=== PATIENT | male | born 1940 ===

== ENCOUNTER → 2023-01-08 | Outpatient (CLI) | payer MEDICARE ==
[~2023-01-08] MED LIST: ATORVASTATIN CA20 MG; DONEPEZIL HCL5 M2 PO; FUROSEMIDE20 MG PO; JARDIANCE10 MG PO; METFORMIN HYDROCHLOR; METOPROLOL SUCC25 MG PO; TAMSULOSIN HCL0.4 M1 PO
== END ==
LOC: LAB 17:17 → LAB SHORT 17:17
DX: B35.3 Tinea pedis (principal); L30.9 Dermatitis, unspecified
CPT/HCPCS: 87210; 87220

== ENCOUNTER → 2023-01-08 | Outpatient (CLI) | payer MEDICARE | LOC: LAB SHORT 07:24 → PLD 07:24 | DX: B35.1 Tinea unguium (principal) | CPT/HCPCS: 88304; 88312 ==

== ENCOUNTER 2024-02-08 11:25 | Emergency (ER) | payer OTHER, MEDICARE ==
[~2024-02-08] VITALS: Ht 180.3 cm; Wt 86.2 kg
[2024-02-08 11:39] VITALS: BP 103/60
== END 2024-02-08 12:39 | disposition home or self-care (01) ==
LOC: ER 11:25
DX: S51.812A Laceration without foreign body of left forearm, initial encounter (principal); R07.81 Pleurodynia; W01.0XXA Fall on same level from slipping, tripping and stumbling without subsequent striking against object, initial encounter; E11.9 Type 2 diabetes mellitus without complications; G30.9 Alzheimer's disease, unspecified; F02.80 Dementia in other diseases classified elsewhere, unspecified severity, without behavioral disturbance, psychotic disturbance, mood disturbance, and anxiety; F17.200 Nicotine dependence, unspecified, uncomplicated; Z79.899 Other long term (current) drug therapy
CPT/HCPCS: 71101; 99283-25

== ENCOUNTER 2024-04-19 09:39 | Emergency (ER) | payer MEDICARE ==
[~2024-04-19] VITALS: Ht 177.8 cm; Wt 86.2 kg
[2024-04-19 10:14] VITALS: BP 127/64
[2024-04-19 11:21] LABS: Albumin, Blood 3.3 g/dL (3.4-5.0); Albumin/Globulin Ratio 0.8 (0.8-1.8); Bilirubin, Total 1.3 mg/dL (0.1-1.0); Bun/Creatinine Ratio 22.8 (12.0-20.0); Calcium, Blood 9.2 mg/dL (8.5-10.1); Creatinine, Blood 0.97 mg/dL (0.60-1.20); Globulin, Blood 3.9 g/dL (2.2-4.0); Potassium, Blood 4.4 mmol/L (3.5-5.5); Total Protein, Blood 7.2 g/dL (6.4-8.2)
[2024-04-19 11:30] LABS: BASOPHILS ABSOLUTE AUTO 0.02 K/mm3 (0.00-0.23); BASOPHILS PERCENT AUTO 0 % (0-2); EOSINOPHILS PERCENT AUTO 1 % (0-6); Hematocrit 40.7 % (37.0-53.0); Hemoglobin 13.8 g/dL (13.5-17.5); IMMATURE GRAN ABSOLUTE AUTO 0.04 K/mm3 (0.00-0.10); IMMATURE GRAN PERCENT AUTO 1 % (0-1); LYMPHOCYTES ABSOLUTE AUTO 1.16 K/mm3 (0.84-5.20); LYMPHOCYTES PERCENT AUTO 15 % (21-46); MONOCYTES ABSOLUTE AUTO 0.66 K/mm3 (0.16-1.47); MONOCYTES PERCENT AUTO 9 % (4-13); Mean Corpuscular HGB 33.2 pg (26.0-34.0); Mean Corpuscular HGB Conc 33.9 g/dL (31.5-36.5); Mean Corpuscular Volume 98 fL (80-100); Mean Platelet Volume 10.8 fL (9.1-12.4); NEUTROPHILS ABSOLUTE AUTO 5.62 K/mm3 (1.96-9.15); NEUTROPHILS PERCENT AUTO 74 % (41-73); Platelet Count 162 K/mm3 (150-400); RDW Coefficient Variation 13.6 % (11.7-14.2); RDW Standard Deviation 49.2 fL (35.1-46.3); Red Blood Cell Count 4.16 M/mm3 (4.30-5.90)
[2024-04-19] MEDS ORDERED: CEPH500 PO (19:00)
== END 2024-04-19 12:17 | disposition left against medical advice (07) ==
LOC: ER 09:39
PROVIDERS: Physician Assistant
DX: L98.419 Non-pressure chronic ulcer of buttock with unspecified severity (principal); Z53.21 Procedure and treatment not carried out due to patient leaving prior to being seen by health care provider; L89.309 Pressure ulcer of unspecified buttock, unspecified stage; L89.322 Pressure ulcer of left buttock, stage 2; L89.312 Pressure ulcer of right buttock, stage 2; E11.9 Type 2 diabetes mellitus without complications; G30.9 Alzheimer's disease, unspecified; F02.80 Dementia in other diseases classified elsewhere, unspecified severity, without behavioral disturbance, psychotic disturbance, mood disturbance, and anxiety; Z86.73 Personal history of transient ischemic attack (TIA), and cerebral infarction without residual deficits; Z79.84 Long term (current) use of oral hypoglycemic drugs; Z79.899 Other long term (current) drug therapy
CPT/HCPCS: 72193; 80053; 85025; 99281; 99283-25; Q9967

== ENCOUNTER 2024-04-19 13:17 | Emergency (ER) | payer MEDICARE ==
[~2024-04-19] VITALS: Ht 177.8 cm; Wt 86.2 kg
[2024-04-19 16:24] VITALS: BP 168/93
[2024-04-19] MEDS ORDERED: Cephalexin Monohydrate 500 MG Cap PO ONE (19:00)
[2024-04-19] MEDS ORDERED: CEPH500 PO (19:00)
== END 2024-04-19 18:58 | disposition home or self-care (01) ==
LOC: ER 13:17
DX: L89.322 Pressure ulcer of left buttock, stage 2 (principal); L89.312 Pressure ulcer of right buttock, stage 2; E11.9 Type 2 diabetes mellitus without complications; G30.9 Alzheimer's disease, unspecified; F02.80 Dementia in other diseases classified elsewhere, unspecified severity, without behavioral disturbance, psychotic disturbance, mood disturbance, and anxiety; Z86.73 Personal history of transient ischemic attack (TIA), and cerebral infarction without residual deficits; Z79.84 Long term (current) use of oral hypoglycemic drugs; Z79.899 Other long term (current) drug therapy
CPT/HCPCS: 72193; 99283-25; Q9967

== ENCOUNTER 2024-04-24 01:50 | Emergency (ER) | payer MEDICARE ==
[~2024-04-24] VITALS: Ht 180.3 cm; Wt 81.7 kg
[~2024-04-24 01:50] MED LIST changes: -ATORVASTATIN CA20 MG; +ATORVASTATIN CA20 MG PO; +CEPH500 PO
[2024-04-24 02:07] VITALS: BP 154/91
[2024-04-24 02:44] LABS: Source, Urine Straight Cath
[2024-04-24 02:48] LABS: Bilirubin, Urine Neg (Neg); Blood, Urine 3+ (Neg); Glucose Qualitative, Urine 4+ (Neg); Ketones, Urine 1+ (Neg); Leukocyte Esterase, Urine Neg (Neg); Nitrite, Urine Neg (Neg); Protein, Urine 3+ (Neg); Urobilinogen, Urine 3+ (Normal)
[2024-04-24 02:50] LABS: BASOPHILS ABSOLUTE AUTO 0.01 K/mm3 (0.00-0.23); BASOPHILS PERCENT AUTO 0 % (0-2); EOSINOPHILS PERCENT AUTO 0 % (0-6); Hematocrit 38.6 % (37.0-53.0); Hemoglobin 12.9 g/dL (13.5-17.5); IMMATURE GRAN ABSOLUTE AUTO 0.02 K/mm3 (0.00-0.10); IMMATURE GRAN PERCENT AUTO 0 % (0-1); LYMPHOCYTES ABSOLUTE AUTO 0.31 K/mm3 (0.84-5.20); LYMPHOCYTES PERCENT AUTO 7 % (21-46); MONOCYTES ABSOLUTE AUTO 0.44 K/mm3 (0.16-1.47); MONOCYTES PERCENT AUTO 9 % (4-13); Mean Corpuscular HGB 32.9 pg (26.0-34.0); Mean Corpuscular HGB Conc 33.4 g/dL (31.5-36.5); Mean Corpuscular Volume 99 fL (80-100); Mean Platelet Volume 9.4 fL (9.1-12.4); NEUTROPHILS ABSOLUTE AUTO 3.92 K/mm3 (1.96-9.15); NEUTROPHILS PERCENT AUTO 83 % (41-73); Platelet Count 120 K/mm3 (150-400); RDW Coefficient Variation 13.5 % (11.7-14.2); RDW Standard Deviation 49.4 fL (35.1-46.3); Red Blood Cell Count 3.92 M/mm3 (4.30-5.90)
[2024-04-24 02:56] LABS: Appearance, Urine Clear (Clear); Color, Urine Yellow (P-Yellow)
[2024-04-24 02:57] LABS: Bacteria Not Seen /hpf; Red Blood Cells, Urine 0-2 /hpf (0-2); Squamous Epithelial Cells Not Seen /hpf (Few); White Blood Cells, Urine Not Seen /hpf (0-5)
[2024-04-24 03:21] LABS: Albumin, Blood 2.7 g/dL (3.4-5.0); Albumin/Globulin Ratio 0.7 (0.8-1.8); Bilirubin, Total 1.7 mg/dL (0.1-1.0); Bun/Creatinine Ratio 26.9 (12.0-20.0); Calcium, Blood 8.6 mg/dL (8.5-10.1); Creatinine, Blood 0.97 mg/dL (0.60-1.20); Globulin, Blood 3.9 g/dL (2.2-4.0); Potassium, Blood 3.7 mmol/L (3.5-5.5); Total Protein, Blood 6.6 g/dL (6.4-8.2)
[2024-04-24 03:47] LABS: Influenza A, PCR NEGATIVE (NEGATIVE); Influenza B, PCR NEGATIVE (NEGATIVE); Resp Syncytial Virus, PCR NEGATIVE (NEGATIVE)
[2024-04-24] MEDS ORDERED: Acetaminophen 500 MG Tab PO ONE (04:20)
[2024-04-24] MEDS ORDERED: NS 1,000 ML IV SCH (04:20)
[2024-04-24 04:42] LABS: SARS-Cov-2 (COVID-19) PCR, MMC POSITIVE (NEGATIVE)
== END 2024-04-24 05:30 | disposition home or self-care (01) ==
LOC: ER 01:50
PROVIDERS: Emergency Medicine
DX: S51.012A Laceration without foreign body of left elbow, initial encounter (principal); S51.011A Laceration without foreign body of right elbow, initial encounter; U07.1 COVID-19; W19.XXXA Unspecified fall, initial encounter; Z79.899 Other long term (current) drug therapy
CPT/HCPCS: 0241U; 70450; 71260; 72125; 74177; 80053; 81001; 82550; 85025; 99284-25; A9270; J7030; Q9967

== ENCOUNTER 2024-04-28 12:59 | Inpatient (IN) | payer MEDICARE ==
[~2024-04-28] VITALS: Ht 177.8 cm; Wt 88.5 kg
[2024-04-28] MEDS ORDERED: Ketorolac Tromethamine 15mg Vial IV ONE (13:40)
[2024-04-28 14:12] LABS: BASOPHILS ABSOLUTE AUTO 0.01 K/mm3 (0.00-0.23); BASOPHILS PERCENT AUTO 0 % (0-2); EOSINOPHILS ABSOLUTE AUTO 0.03 K/mm3 (0.00-0.68); EOSINOPHILS PERCENT AUTO 1 % (0-6); Hematocrit 37.7 % (37.0-53.0); Hemoglobin 12.5 g/dL (13.5-17.5); IMMATURE GRAN ABSOLUTE AUTO 0.05 K/mm3 (0.00-0.10); IMMATURE GRAN PERCENT AUTO 1 % (0-1); LYMPHOCYTES ABSOLUTE AUTO 0.88 K/mm3 (0.84-5.20); LYMPHOCYTES PERCENT AUTO 15 % (21-46); MONOCYTES ABSOLUTE AUTO 0.31 K/mm3 (0.16-1.47); MONOCYTES PERCENT AUTO 5 % (4-13); Mean Corpuscular HGB 32.5 pg (26.0-34.0); Mean Corpuscular HGB Conc 33.2 g/dL (31.5-36.5); Mean Corpuscular Volume 98 fL (80-100); Mean Platelet Volume 10.5 fL (9.1-12.4); NEUTROPHILS ABSOLUTE AUTO 4.47 K/mm3 (1.96-9.15); NEUTROPHILS PERCENT AUTO 78 % (41-73); Platelet Count 140 K/mm3 (150-400); RDW Coefficient Variation 13.8 % (11.7-14.2); RDW Standard Deviation 50.1 fL (35.1-46.3); Red Blood Cell Count 3.85 M/mm3 (4.30-5.90); White Blood Cell Count 5.75 K/mm3 (4.00-11.30)
[2024-04-28 14:37] LABS: Albumin, Blood 2.2 g/dL (3.4-5.0); Albumin/Globulin Ratio 0.5 (0.8-1.8); Bilirubin, Total 1.1 mg/dL (0.1-1.0); Calcium, Blood 8.2 mg/dL (8.5-10.1); Creatinine, Blood 1.05 mg/dL (0.60-1.20); Globulin, Blood 4.4 g/dL (2.2-4.0); Potassium, Blood 3.8 mmol/L (3.5-5.5); Total Protein, Blood 6.6 g/dL (6.4-8.2)
[2024-04-28] MEDS ORDERED: Ondansetron HCl 2 MG / ML 2ML Vial IV PRN (17:40)
[2024-04-28] MEDS ORDERED: Melatonin 5 MG Tablet PO PRN (17:40)
[2024-04-28] MEDS ORDERED: Acetaminophen 500 MG Tab PO PRN (17:40)
[2024-04-28] MEDS ORDERED: FLU VACC TS2024-25(6MOS UP)/PF 45 MCG/0.5 ML SYRINGE IM SCH (17:40)
[2024-04-28] MEDS ORDERED: Donepezil HCl 5 MG Tab PO SCH (21:00)
[2024-04-28 21:46] VITALS: BP 156/75
[2024-04-28] MEDS ORDERED: METF500 PO (21:57)
[2024-04-28] MEDS ORDERED: LEVO T PO (21:59)
[2024-04-28] MEDS ORDERED: Prozac40 MG PO (22:09)
--- NOTE | 2024-04-28 23:10 | NUR ---
@2121 THIS MANAGER CHEMICAL RECEIVED SBAR OVER THE PHONE FROM MIKE FISH @ER. @2129 PT ARRIVED TO THE MEDICAL FLOOR, RM#[id number]. PT WAS TRANSFERRED FROM THE [facility] TO HOSPITAL BED WITH A SLIDING SHEET. PT DID NOT HAVE BELONINGS WITH HIM. MIKE DUNN COMPLETED THE ADMISSION ASSESSMENT. SKIN CHECK WITH THIS MANAGER CHEMICAL. PICTURES WERE TAKEN OF THE BOTH ELBOWS. LEFT ELBOW: MEPILEX WAS PLACED ON THE SKINTEAR AND HAS A LARGE PURPLE AREA. RIGHT ELBOW HAS A LARGE PURPLE AREA. MEPILEX PLACED ON COCCYX, SKIN INTACT. PT DENIES PAIN. PT IS ON RA, TELE: SR@ 68. IV IS @LAC. PT IS SBA TO COMMODE, AND HAS A BEDSIDE URINAL. PT IS CONTINENT. PER MIKE FISH REPORT, PT HAS A SCHEDULED ECHO TOMORROW, AND A PALLIATIVE CARE CONSULT WAS PLACED. 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 NON-SLIP SOCKS ON, BED ALARM FOR SAFETY.
[2024-04-29 03:18] VITALS: BP 147/79
[2024-04-29 05:33] LABS: Hematocrit 35.8 % (37.0-53.0); Mean Corpuscular HGB 32.3 pg (26.0-34.0); Mean Corpuscular HGB Conc 33.5 g/dL (31.5-36.5); Mean Corpuscular Volume 97 fL (80-100); Mean Platelet Volume 10.5 fL (9.1-12.4); Platelet Count 141 K/mm3 (150-400); RDW Coefficient Variation 13.6 % (11.7-14.2); RDW Standard Deviation 48.5 fL (35.1-46.3); Red Blood Cell Count 3.71 M/mm3 (4.30-5.90); White Blood Cell Count 5.82 K/mm3 (4.00-11.30)
[2024-04-29 06:03] LABS: Bun/Creatinine Ratio 29.6 (12.0-20.0); Calcium, Blood 8.3 mg/dL (8.5-10.1); Creatinine, Blood 0.81 mg/dL (0.60-1.20); Potassium, Blood 3.6 mmol/L (3.5-5.5)
[2024-04-29] MEDS ORDERED: Insulin Human Lispro 100 Units/ML 3ML Syringe SC SCH (07:30)
[2024-04-29 07:52] VITALS: BP 145/71
[2024-04-29] MEDS ORDERED: Enoxaparin 40 MG/0.4 ML SYR SC SCH (09:00)
[2024-04-29] MEDS ORDERED: Furosemide 10 MG / ML 2ML Vial IV SCH (09:00)
[2024-04-29] MEDS ORDERED: Tamsulosin HCl 0.4 MG Cap PO SCH (09:00)
[2024-04-29] MEDS ORDERED: Metoprolol Succinate 25 MG TABCR PO SCH (09:00)
[2024-04-29 10:10] VITALS: BP 140/72
[2024-04-29 15:55] VITALS: BP 153/77
--- NOTE | 2024-04-29 15:56 | NUR ---
SHIFT SUMMARY- PT HAS HAD NO ACUTE CHANGE T/O THE SHIFT. PT ALERT AND ORIENTED X3, A LITTLE FORGETFUL. HE HAS A Dx OF ALZEHEIMERS AND A Hx CVA, PHYSICAL THERAPY WORKED WITH THE PT TODAY AND MADE HIM A 1P ASSIST FOR TRANSFER. PT IS CURRENTLY ON ROOM AIR, DENIES SOB OR COUGH, BUT HE DOES HAVE A COUGH THAT SOUNDS LIKE A HACKY COUGH WHEN HE HAS IT. PT IS IN BED, CALL LIGHT IN REACH NO S&S OF DISTRESS NOTED AT THIS TIME. WILL PASS ON IN BEDSIDE REPORT TO NIGHT RN.
--- NOTE | 2024-04-29 16:22 | NUR ---
DISCUSSED CASE WITH BEDSIDE RN. CALLED [facility]UKUL JOSE F GOMEZ ON FILE. CALLED PATIENTS SON KAREN, HE REPORTED THAT HE DID NOT HAVE A COPY BUT BELIEVES THEY MAY HAVE FILLED ONE OUT. HE IS OPEN TO FILLING OUT A NEW ONE TOMORROW WHEN HE COMES IN. HE RELAYED THAT HIM AND HIS FATHER HAVE HAD EXTENSIVE CONVERSATIONS ABOUT WHAT TARI WOULD WANT. HE SAID THAT HE WOULD NOT WANT ANY EXTREME MEASURES TAKEN. WE DISCUSSED CODE STATUS AND HE REQUESTED THAT CHANGE HIM TO A DNR. DISCUSSED WITH PROVIDER. VERIFIED WITH TARI.
[2024-04-29 19:38] VITALS: BP 147/71
[2024-04-30 04:31] VITALS: BP 150/79
--- NOTE | 2024-04-30 05:35 | NUR ---
Pt doing well this shift. VS WNL, UOP WNL, A&O x3. tele NSR with 1st degree block. Remains on RA, Pt without cough, L/S with rubs, but good air exchange, up with SBA d/t several falls at home, Pallative care consulting, Son to bring in POLST today. Awaiting Echo then will d/c back to [facility] with HH.
[2024-04-30 07:00] LABS: Hematocrit 36.1 % (37.0-53.0); Mean Corpuscular HGB 32.3 pg (26.0-34.0); Mean Corpuscular HGB Conc 33.2 g/dL (31.5-36.5); Mean Corpuscular Volume 97 fL (80-100); Mean Platelet Volume 10.9 fL (9.1-12.4); Platelet Count 162 K/mm3 (150-400); RDW Coefficient Variation 13.4 % (11.7-14.2); RDW Standard Deviation 47.9 fL (35.1-46.3); Red Blood Cell Count 3.71 M/mm3 (4.30-5.90); White Blood Cell Count 5.84 K/mm3 (4.00-11.30)
[2024-04-30 07:18] LABS: Bun/Creatinine Ratio 28.2 (12.0-20.0); Calcium, Blood 8.2 mg/dL (8.5-10.1); Creatinine, Blood 0.89 mg/dL (0.60-1.20); Potassium, Blood 3.8 mmol/L (3.5-5.5)
[2024-04-30 07:21] LABS: BASOPHILS PERCENT MAN 0 % (0-2); EOSINOPHILS PERCENT MAN 0 % (0-6); LYMPHOCYTES % ATYPICAL MANUAL 1 % (0-0); LYMPHOCYTES PERCENT MAN 18 % (21-46); MONOCYTES ABSOLUTE MAN 0.35 K/mm3 (0.16-1.47); MONOCYTES PERCENT MAN 6 % (4-13); NEUTROPHILS ABSOLUTE MAN 4.38 K/mm3 (1.96-9.15); SEG NEUTROPHILS PERCENT MAN 75 % (41-73); TOTAL CELLS COUNTED 100
[2024-04-30 07:37] VITALS: BP 159/75
[2024-04-30] MEDS ORDERED: MELATONIN5 M1 PO (14:38)
[2024-04-30] MEDS ORDERED: SPIR25 PO (14:38)
[2024-04-30] MEDS ORDERED: LOSA25 PO (14:38)
[2024-04-30 14:53] VITALS: BP 164/87
[2024-04-30 15:26] VITALS: BP 168/80
--- NOTE | 2024-04-30 15:46 | NUR ---
PATIENT'S BP WAS CHECKED PRIOR TO HIS DISCHARGE HOME. BP WAS 168/80. DR. VAEL NOTIFIED BY TELEPHONE. DR. VALE ASKED THAT THE PATIENT START HIS NEW RX FOR LOSARTAN AND ALDACTONE TONIGHT ONCE HE GETS HOME. THIS WAS RELAYED TO THE PATIENT'S SON WHO WAS AT THE BEDSIDE ON DISCHARGE, WHO AGREED TO START THIS MEDICATIONS THIS AFTERNOON ONCE PICKED UP FROM [facility]. 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 PATIENT DISCHARGED HOME AT 15:30 VIA [facility] WHEELCHAIR RIDE.
--- NOTE | 2024-04-30 16:11 | NUR ---
ROUNDED ON PATIENT THIS MORNING. HE WAS AGITATED AND WANTED TO GO HOME. STAFF REQUESTING DISCONTINUATION OF TELE. CALLED PRINT OPERATOR. PATIENT HAS HAD NO CHANGES. DISCUSSED WITH PROVIDER. TELE WAS D/C
== END 2024-04-30 15:32 | disposition home health service (06) | DRG 178 ==
LOC: ER 12:59 → MEDS 13:00 → ENPENDDIS 04-30 14:09 → MEDS 04-30 15:32
PROVIDERS: Emergency Medicine; Family Medicine; Nurse Practitioner Acute Care; ADMIT Internal Medicine
DX: U07.1 COVID-19 (principal); I24.89 Other forms of acute ischemic heart disease; I11.0 Hypertensive heart disease with heart failure; E11.9 Type 2 diabetes mellitus without complications; Z86.73 Personal history of transient ischemic attack (TIA), and cerebral infarction without residual deficits; N40.0 Benign prostatic hyperplasia without lower urinary tract symptoms; F02.A0 Dementia in other diseases classified elsewhere, mild, without behavioral disturbance, psychotic disturbance, mood disturbance, and anxiety; Z66 Do not resuscitate; R74.01 Elevation of levels of liver transaminase levels; G30.9 Alzheimer's disease, unspecified; E78.5 Hyperlipidemia, unspecified; Z87.891 Personal history of nicotine dependence; Z79.899 Other long term (current) drug therapy; Z79.84 Long term (current) use of oral hypoglycemic drugs
CPT/HCPCS: 36415; 71045; 76705; 80048; 80053; 82947; 83690; 83880; 84145; 84484; 85025; 85027; 93005; 93010; 93306; 96372; 96374; 96375; 97110; 97161; 97530; 99285-25; A9270; G0378; J1650; J1885; J1940

== ENCOUNTER 2024-06-19 17:34 | Emergency (ER) | payer MEDICARE, BC ==
[~2024-06-19] VITALS: Ht 177.8 cm; Wt 85.7 kg
[~2024-06-19 17:34] MED LIST changes: +LEVO T PO; +LOSA25 PO; +MELATONIN5 M1 PO; +METF500 PO; +Prozac40 MG PO; +SPIR25 PO
[2024-06-19] MEDS ORDERED: Acetaminophen 500 MG Tab PO ONE (18:00)
[2024-06-19] MEDS ORDERED: Diphth,Pertuss(Acell),Tet Vac 0.5 ML VIAL IM ONE (18:00)
[2024-06-19] MEDS ORDERED: NASACORT10.8 ML (18:01)
[2024-06-19] MEDS ORDERED: Ibuprofen 600 MG Tab PO ONE (19:15)
[2024-06-20] MEDS ORDERED: MetFORMIN HCl 500 mg PO SCH (08:00)
[2024-06-20 08:26] VITALS: BP 162/71
[2024-06-20] MEDS ORDERED: Losartan Potassium 50 MG Tab PO ONE (08:50)
[2024-06-20] MEDS ORDERED: Spironolactone 12.5 MG TAB PO SCH (09:00)
[2024-06-20] MEDS ORDERED: Levothyroxine Sodium 0.137 MG Tab PO SCH (09:00)
[2024-06-20] MEDS ORDERED: FLUoxetine HCL 20 MG CAP PO SCH (09:00)
[2024-06-20] MEDS ORDERED: Empagliflozin 10 MG TAB PO SCH (09:00)
[2024-06-20] MEDS ORDERED: Metoprolol Succinate 25 MG TABCR PO SCH (09:00)
[2024-06-20] MEDS ORDERED: Tamsulosin HCl 0.4 MG Cap PO SCH (09:00)
[2024-06-20] MEDS ORDERED: Losartan Potassium 50 MG Tab PO SCH (21:00)
[2024-06-20] MEDS ORDERED: Donepezil HCl 5 MG Tab PO SCH (21:00)
[2024-06-20] MEDS ORDERED: Atorvastatin 10 MG Tab PO SCH (21:00)
== END 2024-06-20 14:15 ==
LOC: ER 17:34
DX: S32.019A Unspecified fracture of first lumbar vertebra, initial encounter for closed fracture (principal); S51.812A Laceration without foreign body of left forearm, initial encounter; E11.9 Type 2 diabetes mellitus without complications; I10 Essential (primary) hypertension; Z88.8 Allergy status to other drugs, medicaments and biological substances; Z79.02 Long term (current) use of antithrombotics/antiplatelets; Z79.899 Other long term (current) drug therapy; Z79.84 Long term (current) use of oral hypoglycemic drugs; Z79.85 Long-term (current) use of injectable non-insulin antidiabetic drugs; Z87.891 Personal history of nicotine dependence; W18.30XA Fall on same level, unspecified, initial encounter; Y92.009 Unspecified place in unspecified non-institutional (private) residence as the place of occurrence of the external cause
CPT/HCPCS: 70450; 72131; 90471; 90715; 99285-25; A9270